=== PATIENT | female | born 1990 | race African-American/Black ===

== ENCOUNTER 2021-11-07 23:47 | Emergency (ER) | payer OTHER ==
[~2021-11-07] VITALS: Ht 165.1 cm; Wt 81.7 kg
[~2021-11-07 23:47] MED LIST: ACCUNEB SO1.25 MG/1 INH; CYCLOBENZAPRINE; HYDROCODON-ACE1 EAC7; IBUPROFEN 600600 M1 PO; NAPROXEN DELAY500 M1; NAPROXEN500 MG PO; NOHOMEMEDICATIONS; PHENERGAN 25 MG25 M1 PO; PROVENTIL HFA6.7 G1 INH; TRINATE TABLET1 TAB PO; ULTRAM 50MG TAB50 MG PO; VICODIN 5-5001 EACH PO; ZPAK PO
[2021-11-08 02:19] VITALS: BP 00/00
== END 2021-11-08 02:21 | disposition home or self-care (01) ==
LOC: ER 23:47
DX: H10.9 Unspecified conjunctivitis (principal); H57.11 Ocular pain, right eye; H53.8 Other visual disturbances; J45.909 Unspecified asthma, uncomplicated; F17.200 Nicotine dependence, unspecified, uncomplicated; Z90.49 Acquired absence of other specified parts of digestive tract; Z88.8 Allergy status to other drugs, medicaments and biological substances; Z88.6 Allergy status to analgesic agent; Z91.040 Latex allergy status